=== PATIENT | female | born 1990 | race Caucasian/White ===

== ENCOUNTER 2017-05-03 16:13 | Emergency (ER) | payer OTHER ==
[~2017-05-03] VITALS: Ht 165.1 cm; Wt 113.4 kg
[~2017-05-03 16:13] MED LIST: ATIVAN1 MG PO; CLINDAMYCIN HC300 MG PO; ESCITALOPRAM OX10 MG PO; HYDROXYZINE HCL25 MG PO; LITHIUM CARBON300 M1 PO; LITHIUM CARBON450 MG PO; LORAZEPAM1 MG PO; PRENATABS RX T1 EACH PO; TERBINAFINE HC250 MG PO; TRIAMCINOLONE A15 G1 TOP; ULTRAM50 MG PO; ZOFRAN4 MG PO
[2017-05-03] MEDS ORDERED: LITHIUM CARBON300 M1 PO (16:31)
[2017-05-03] MEDS ORDERED: NORCO 10-325 T1 EACH PO (16:43)
== END 2017-05-03 16:55 | disposition home or self-care (01) ==
LOC: ED 16:13
DX: N92.0 Excessive and frequent menstruation with regular cycle (principal); N92.1 Excessive and frequent menstruation with irregular cycle; F41.9 Anxiety disorder, unspecified; Z88.8 Allergy status to other drugs, medicaments and biological substances; Z79.899 Other long term (current) drug therapy
CPT/HCPCS: 99283

== ENCOUNTER 2017-06-04 14:01 | Emergency (ER) | payer OTHER ==
[~2017-06-04] VITALS: Ht 165.1 cm; Wt 113.4 kg
[~2017-06-04 14:01] MED LIST changes: +NORCO 10-325 T1 EACH PO
--- NOTE | 2017-06-07 06:35 | EKG ---
[facility] [address] [facility] [place] [address] Signed Normal sinus rhythm Normal ECG No previous ECGs available Confirmed by NONI NAIK MD ([id number]) on 06/07/2017 6:35:34 AM Electronically Signed By: NONI NAIK MD 06/07/17 0635 PATIENT NAME: RACHEAL JAMISON PRATIK Electrocardiogram DATE OF : [birth year] PHYSICIAN: NONI NAIK MD REPORT #: [id number] REPORT IS CONFIDENTIAL AND NOT TO BE RELEASED WITHOUT AUTHORIZATION
== END 2017-06-04 17:30 | disposition home or self-care (01) ==
LOC: ED 14:01
DX: R07.89 Other chest pain (principal); F41.9 Anxiety disorder, unspecified; F60.9 Personality disorder, unspecified; F17.200 Nicotine dependence, unspecified, uncomplicated; Z88.6 Allergy status to analgesic agent; Z91.018 Allergy to other foods; Z79.899 Other long term (current) drug therapy
CPT/HCPCS: 71046; 80053; 84703; 85025; 85379; 93005; 93010; 99284

== ENCOUNTER 2018-04-26 10:45 | Emergency (ER) | payer OTHER ==
[~2018-04-26] VITALS: Ht 165.1 cm; Wt 104.8 kg
== END 2018-04-26 11:00 | disposition home or self-care (01) ==
LOC: ED 10:45
DX: M25.571 Pain in right ankle and joints of right foot (principal)

== ENCOUNTER 2019-02-07 09:00 | Day surgery (SDC) | payer OTHER ==
[~2019-02-07] VITALS: Ht 165.1 cm; Wt 97.1 kg
[~2019-02-07 09:00] MED LIST changes: +LITHIUM CARBON300 M2 PO; +NORCO 5-325 TA1 EACH PO
--- NOTE | 2019-02-07 11:44 | NUR ---
PATIENT IS UP TO THE BATHROOM WITH MY STANDBY. PATIENT AMBULATES WELL, VOIDS AND IS BACK IN BED. SIDE RAILS ARE UP IN THE LOCKED POSITION. MOTHER REMAINS AT THE BEDSIDE.
--- NOTE | 2019-02-07 13:01 | NUR ---
02/07/19 1301 Tianna Ramirez 1248: PT ARRIVES TO PACU WITH EYES CLOSED, RESP EVEN AND UNLABORED. PT HAS 6 L O2 VIA MASK IN PLACE. PT RESPONSIVE TO VERBAL STIMULI. 1250: PT AWAKE AND TALKING TO RN, O2 REMOVED. PT ABLE TO MAINTAIN SATS GREATER THAN 90% ON RA. PT STATES PAIN 7/10 IN ABD. 1257: SEE EMAR FOR PAIN MEDICATION.
--- NOTE | 2019-02-07 13:49 | NUR ---
1335: PATIENT BACK IN DAY SURGERY ROOM FROM PACU. C/O PAIN 9/10 IN ABDOMEN. PATIENT GIVEN CRACKERS AND ICE WATER. ABDOMINAL INCISIONS WITH STERI STRIPS AND BANDAIDS CLEAN, DRY, AND INTACT. IV SITE WNL. SCDs ON. DENIES NAUSEA. MOTHER AT BEDSIDE. CALL LIGHT WITHIN REACH. 1345: PATIENT TOLERATED CRACKERS. GIVEN JELLO. MEDICATED FOR PAIN WITH 2 TABS OF NORCO. CALL LIGHT WITHIN REACH. MOTHER AT BEDSIDE.
[2019-02-07] MEDS ORDERED: NORCO 5-325 TA1 EACH PO (14:13)
--- NOTE | 2019-02-07 14:33 | NUR ---
PATIENT TOLERATED JELLO, WATER, AND CRACKERS. RATES PAIN 7/10. NO NEEDS AT THIS TIME. MOTHER AT BEDSIDE. CALL LIGHT WITHIN REACH.
--- NOTE | 2019-02-07 15:24 | NUR ---
PATIENT ASSISTED OOB AND TO BATHROOM. GAIT STEADY. VOID WITHOUT DIFFICULTY. GAIT STEADY BACK TO ROOM. IV DC'D WNL. TIP INTACT. DRESSING APPLIED. PATIENT GETTING DRESSED WTIH HELP FROM MOTHER.
--- NOTE | 2019-02-07 15:59 | NUR ---
1540: DISCHARGE INSTRUCTIONS GIVEN TO PATIENT AND MOTHER. PATIENT DISCHARGED TO HOME WITH MOTHER AND BOYFRIEND VIA WHEELCHAIR.
--- NOTE | 2019-02-08 13:26 | OR ---
[facility] [address] [place] [id number] Signed DATE OF OPERATION: 02/07/2019 SURGEON: Liam Jones MD Patient of Dr. Jones. PRIMARY CARE PROVIDER: LUIS Gage. PREOPERATIVE DIAGNOSIS: Pelvic pain. POSTOPERATIVE DIAGNOSES: Pelvic pain plus endometriosis of pelvic peritoneum. PROCEDURE: Diagnostic laparoscopy. POLICE PATROL LIEUTENANT: Dr. Bauman. ANESTHESIA: General. ESTIMATED BLOOD LOSS: 5 mL. SPECIMEN: None. DRAINS: None. FINDINGS: Normal cervix. Normal size and shape uterus without any evidence of endometriosis or adhesions. Anterior cul-de-sac was free of any endometriosis or adhesions. Posterior cul-de-sac had one small red endometrial lesion, just medial to the right uterosacral ligament. The left tube was normal in length and normal-appearing fimbriated end. The left ovary is normal size and shape without any evidence endometriosis or any adhesions. The left pelvic sidewall was free of any endometriosis Electronically Signed By: LIAM JONES MD 02/08/19 1326 PATIENT NAME: RACHEAL JAMISON OPERATIVE REPORT DATE OF : [birth year] REPORT #: [id number] PHYSICIAN: LIAM JNOES MD PCP: DAMON HAAS REPORT IS CONFIDENTIAL AND NOT TO BE RELEASED WITHOUT AUTHORIZATION [facility] [address] [place] [id number] Signed or adhesions. However, the posterior left broad ligament adjacent to the uterus and above the uterosacral ligament had multiple scattered clear endometrial implants over a fairly broad area and overlying the ureter and the uterine vessels. There were no adhesions present. The right tube was normal in length and the normal-appearing fimbriated end. The right ovary is normal size and shape without any evidence endometriosis or adhesions. Right pelvic sidewall was free of any endometriosis or adhesions. The appendix appeared normal and the liver and stomach also appeared normal. There are no abdominal adhesions or masses. COMPLICATIONS: None. DESCRIPTION OF PROCEDURE: The patient was brought to the operating room, placed in supine position. After adequate general anesthesia was obtained, was placed in dorsal lithotomy position, prepped and draped in usual sterile fashion. A Waldron catheter was placed in the bladder. Weighted speculum placed in the vagina and the anterior lip of cervix grasped with an Allis clamp. Hulka clamp was carefully introduced through the cervix into the uterine cavity and attached to the anterior lip of the cervix. Allis clamp and weighted speculum were removed. Attention was then drawn to the abdomen. A small infraumbilical skin incision was made after injecting the area with 0.25% Marcaine. A 5 mm direct entry trocar and sleeve were used with the laparoscope. The abdominal wall was grasped on either side of the incision, elevated, and the trocar and sleeve entered under direct visualization. Once the tip was in the abdomen, gas was allowed to flow into the abdomen and started insufflating. The trocar was removed and the laparoscope placed back through the sleeve. The right lower abdomen was transilluminated and a small incision on the right lower quadrant made after injecting the area with 0.25% Marcaine. A bladed 5-mm trocar and sleeve entered the abdomen under direct visualization. Trocar was removed and the balloon filled and blunt grasper inserted. The above findings were noted. The entire pelvis was carefully inspected. The endometrial implants were inspected carefully, but because of the broad area and the position, it was decided not to attempt a broad peritoneal removal over the left uterine arteries and veins. So at this point, the procedure was terminated. All the gas allowed to escape. The two sleeves removed and skin incisions closed using 4-0 Vicryl in subcuticular stitches. The Hulka clamp was removed. The cervix noted to have good hemostasis. Waldron catheter was also removed. The patient tolerated the procedure well, went to recovery room in good condition. Sponge, needle, and instrument count correct at the end of procedure. Electronically Signed By: LIAM JONES MD 02/08/19 1326 PATIENT NAME: RACHEAL JAMISON OPERATIVE REPORT DATE OF : [birth year] REPORT #: [id number] PHYSICIAN: LIAM JONES MD PCP: DAMON HAAS REPORT IS CONFIDENTIAL AND NOT TO BE RELEASED WITHOUT AUTHORIZATION [address] [address] Signed Liam Jones MD MJB/MODL /[id number] cc: LUIS Gage Copies: DAMON HAAS ~ Electronically Signed By: LIAM JONES MD 02/08/19 1326 PATIENT NAME: RACHEAL JAMISON OPERATIVE REPORT DATE OF : [birth year] REPORT #: [id number] PHYSICIAN: LIAM JONES MD PCP: DAMON HAAS REPORT IS CONFIDENTIAL AND NOT TO BE RELEASED WITHOUT AUTHORIZATION
== END 2019-02-07 15:40 | disposition home or self-care (01) ==
LOC: OPS 09:00 → DS 13:00 → OPS 13:00
PROVIDERS: General Practice
PROC: 0WJG4ZZ Inspection of Peritoneal Cavity, Percutaneous Endoscopic Approach (ICD-10-PCS; principal; 2019-02-07 10:30)
DX: N80.3 Endometriosis of pelvic peritoneum (principal); F60.3 Borderline personality disorder; F41.0 Panic disorder [episodic paroxysmal anxiety]; F17.210 Nicotine dependence, cigarettes, uncomplicated; Z91.018 Allergy to other foods; Z88.6 Allergy status to analgesic agent; Z79.899 Other long term (current) drug therapy
CPT/HCPCS: J0131; J0330; J1100; J1170; J1885; J2250; J2270; J2405; J2704; J3010; J7121

== ENCOUNTER 2021-05-11 12:22 | Emergency (ER) | payer OTHER ==
[~2021-05-11] VITALS: Ht 165.1 cm; Wt 102.1 kg
[~2021-05-11 12:22] MED LIST changes: +CALCIUM 600 +1 EAC4 PO; +PERCOCET 5-3251 EACH PO; +VITAMIN E400 UNI4 PO
[2021-05-11] MEDS ORDERED: FLUOXETINE HCL10 MG PO (12:43)
[2021-05-11] MEDS ORDERED: HYDROCODON-ACE1 EA10 PO (14:34)
[2021-05-11] MEDS ORDERED: ONDANSETRON ODT8 MG PO (14:36)
== END 2021-05-11 15:22 | disposition home or self-care (01) ==
LOC: ED 12:22
DX: R10.31 Right lower quadrant pain (principal); F17.200 Nicotine dependence, unspecified, uncomplicated; Z88.5 Allergy status to narcotic agent; Z91.010 Allergy to peanuts; Z88.8 Allergy status to other drugs, medicaments and biological substances; Z79.899 Other long term (current) drug therapy
CPT/HCPCS: 36415; 74177; 80053; 81001; 85025; 96375; 99284-25; J1170; J2405; J7030; Q9967

== ENCOUNTER 2021-05-27 11:01 | Emergency (ER) | payer OTHER ==
[~2021-05-27] VITALS: Ht 165.1 cm; Wt 102.1 kg
[~2021-05-27 11:01] MED LIST changes: +FLUOXETINE HCL10 MG PO; +HYDROCODON-ACE1 EA10 PO; +ONDANSETRON ODT8 MG PO
--- OUTSIDE RECORDS SUMMARY | 2021-05-27 11:04 | XMS ---
PreManage Notification: RACHEAL JAMISON Security Supervisor Customer Services Events No recent Security Events currently on file CRITERIA MET - [facility] - 2 Visits in 30 Days CARE PROVIDERS JOSELYN HAAS Dentist: Supervisor Dental Laboratory 12/27/2018-Current PHONE: [phone] Jaydon Haas [facility] 12/27/2018-Current PHONE: Unknown [facility] has no Care Guidelines for this patient. Care History Medical/Surgical 01/09/2019 [facility] - PATIENT HAS A SCHEDULED SURGERY ON 01/23/[address] ACUÑA. [place] VISIT COUNT (12 MO.) 2 [facility] TOTAL 2 NOTE: Visits indicate total known visits. ED/UCC VISIT TRACKING (12 MO.) 05/27/2021 11:01 [facility] OR TYPE: Emergency COMPLAINT: - ALLERGIC BODY RASH 05/11/2021 12:23 [facility] OR TYPE: Emergency COMPLAINT: - ABD PAIN DIAGNOSES: - Allergy to peanuts - Other terminal computer operator (current) drug therapy - Allergy status to narcotic agent - Allergy status to other drugs, medicaments and biological substances - Nicotine dependence, unspecified, uncomplicated - Right lower quadrant pain INPATIENT VISIT TRACKING (12 MO.) No inpatient visits to display in this time frame [email or web address]
[2021-05-27] MEDS ORDERED: PREDNISONE20 MG PO (14:08)
== END 2021-05-27 14:16 | disposition home or self-care (01) ==
LOC: ED 11:01
DX: L50.9 Urticaria, unspecified (principal); J06.9 Acute upper respiratory infection, unspecified; F17.200 Nicotine dependence, unspecified, uncomplicated; Z88.6 Allergy status to analgesic agent; Z88.8 Allergy status to other drugs, medicaments and biological substances; Z91.010 Allergy to peanuts; Z91.018 Allergy to other foods; Z79.899 Other long term (current) drug therapy
CPT/HCPCS: 99283; J7512; Q0163

== ENCOUNTER 2024-05-07 15:11 | Emergency (ER) | payer OTHER ==
[~2024-05-07] VITALS: Ht 165.1 cm; Wt 119.0 kg
[~2024-05-07 15:11] MED LIST changes: +PREDNISONE20 MG PO
[2024-05-07] MEDS ORDERED: AMOX TR-K CLV1 EAC1 PO (15:20)
[2024-05-07] MEDS ORDERED: LITHIUM CARBON150 MG PO (15:20)
[2024-05-07] MEDS ORDERED: OMEPRAZOLE20 MG PO (15:21)
[2024-05-07] MEDS ORDERED: FLUOXETINE HCL20 M1 PO (15:21)
[2024-05-07 18:36] LABS: BASOPHILS 0.4 % (0-2); EOSINOPHILS 0.3 % (0-6); HEMATOCRIT 41.6 % (35.0-50.0); HEMOGLOBIN 14.1 g/dL (12.0-18.0); LYMPHOCYTES 29.3 % (24-44); MCH 28.6 (27-36); MCHC 33.8 g/dl (30-36); MCV 84.5 fl (81-99); MONOCYTES 5.3 % (0-12); NEUTROPHILS 64.7 % (39-80); PLATELET COUNT 419 K/uL (140-440); RBC 4.93 M/ul (4.3-5.7); RDW 14.5 (10.5-15.0)
[2024-05-07 18:44] LABS: ANION GAP 13.8 (7-21); BUN/CREATININE RATIO 13.15 (6.0-28.6); CREATININE, SERUM 0.76 mg/dL (0.55-1.02); POTASSIUM 3.8 mmol/L (3.5-5.1)
[2024-05-07 19:35] VITALS: BP 128/90
--- NOTE | 2024-05-08 22:48 | EKG ---
[facility] [address] [facility] [place] [address] Signed Normal sinus rhythm Normal ECG When compared with ECG of 21-JAN-2020 12:13, Nonspecific T wave abnormality now evident in Inferior leads Confirmed by Ezequiel Garcia MD () on 05/08/2024 10:48:00 PM Electronically Signed By: EZEQUIEL GARCIA MD 05/08/24 2248 PATIENT NAME: SHAHEENRACHEAL ROSE Electrocardiogram DATE OF : [birth year] PHYSICIAN: EZEQUIEL GARCIA MD REPORT #: [id number] REPORT IS CONFIDENTIAL AND NOT TO BE RELEASED WITHOUT AUTHORIZATION
== END 2024-05-07 19:33 | disposition home or self-care (01) ==
LOC: ED 15:11
PROVIDERS: Emergency Medicine
DX: R06.02 Shortness of breath (principal); R55 Syncope and collapse; F17.200 Nicotine dependence, unspecified, uncomplicated; Z79.899 Other long term (current) drug therapy; Z88.6 Allergy status to analgesic agent; Z91.018 Allergy to other foods
CPT/HCPCS: 36415; 80048; 85025; 93005; 93010; 99285